=== PATIENT | male | born 1970 | race Caucasian/White ===

== ENCOUNTER → 2017-05-02 | Outpatient (CLI) | payer OTHER ==
[2017-05-02 19:20] LABS: Basophils # (A) 0.1 k/uL (0-0.2); Basophils % (A) 1 %; CH 30.6; Eosinophils # (A) 0.3 k/uL (0-0.7); Eosinophils % (A) 4 %; HCT 46.7 % (39.0-53.0); HDW 2.81; HGB 15.9 gm/dL (13.0-17.5); Luc # (Auto) 0.15; Luc % (Auto) 2; Lymphocytes # (A) 2.3 k/uL (1.0-4.8); Lymphocytes % (A) 27 %; MCH 29.9 pg (25.0-35.0); MCHC 34.1 g/dL (31.0-37.0); MCV 87.9 fL (80.0-100.0); Mean Platelet Volume 8.4; Monocytes # (A) 0.7 k/uL (0-1.0); Monocytes % (A) 8 %; Neutrophils % (A) 59 %; RBC 5.31 m/uL (4.30-5.90); RDW 15.8 % (11.5-15.5); WBC 8.5 k/uL (3.8-10.6); WBC (Perox) 8.34
[2017-05-02 19:30] LABS: ALT 59 U/L (21-72); AST 35 U/L (17-59); Alkaline Phosphatase 115 U/L (38-126); Anion Gap 12 mmol/L; Blood Urea Nitrogen 13 mg/dL (9-20); Calcium 9.4 mg/dL (8.4-10.2); Carbon Dioxide 25 mmol/L (22-30); Chloride 102 mmol/L (98-107); Cholesterol 107 mg/dL (<200); Glucose 99 mg/dL (74-99); HDL Cholesterol 36 mg/dL (40-60); Non-African American GFR(MDRD) >60 (>60 ml/min/1.73 sqM); Potassium 4.3 mmol/L (3.5-5.1); Sodium 139 mmol/L (137-145); Total Bilirubin 1.1 mg/dL (0.2-1.3); Total Protein 7.2 g/dL (6.3-8.2)
== END | disposition home or self-care (01) ==
LOC: MMGSC 11:48
PROVIDERS: ATTEND Family Medicine
DX: Z00.00 Encounter for general adult medical examination without abnormal findings (principal); I25.10 Atherosclerotic heart disease of native coronary artery without angina pectoris
CPT/HCPCS: 36415; 80053; 80061; 84439; 84443; 85025

== ENCOUNTER → 2017-05-02 | Outpatient (CLI) | payer OTHER | END | disposition home or self-care (01) | LOC: MMGSC 10:43 | PROVIDERS: ATTEND Internal Medicine Cardiovascular Disease | DX: I25.10 Atherosclerotic heart disease of native coronary artery without angina pectoris (principal) | CPT/HCPCS: 83704 ==

== ENCOUNTER → 2023-02-20 | Outpatient (CLI) | payer BC ==
--- NOTE | 2023-02-20 17:33 | US ---
EXAMINATION TYPE: US extremity nonvasc mass RT DATE OF EXAM: 02/20/2023 COMPARISON: NONE CLINICAL INDICATION: Male, 52 years old with history of R22.41 LOCALIZED SWELLING, MASS AND LUMP, RIG HT LO; RT 5cm lump on hip x a few months. TECHNIQUE: several sonographic images taken at area of concern FINDINGS: no discrete mass noted. Area appears to represent area of subcutaneous fat. Area imaged do wn to abdominal wall. IMPRESSION: No evidence for mass. Area of concern demonstrates lipomatous tissue. Correlate for lipom a.
== END | disposition home or self-care (01) ==
LOC: RADUSWWP 16:45
PROVIDERS: ATTEND Family Medicine
DX: R22.41 Localized swelling, mass and lump, right lower limb (principal)